=== PATIENT | female | born 2005 | race Caucasian/White ===

== ENCOUNTER 2024-03-14 06:50 | Emergency (ER) | payer SELFPAY ==
[2024-03-14] MEDS ORDERED: Ondansetron PF 4 MG/2 ML Vial ONE (07:21)
[2024-03-14 07:51] LABS: #Basophils 0.07 10x3/uL (0.0-0.2); #Eosinophils 0.11 10x3/uL (0.0-0.5); #Monocytes 0.66 10x3/uL (0.0-1.1); #Neutrophils 6.54 10x3/uL (1.5-8.4); %Basophils 0.7 % (0.0-2.0); %Eosinophils 1.1 % (0.0-6.0); %Lymphocytes 26.3 % (18.0-47.0); %Monocytes 6.6 % (0.0-10.0); %Neutrophils 65.1 % (40.0-75.0); Hematocrit 46.7 % (34.9-44.5); Hemoglobin 15.2 g/dL (12.0-15.5); Mean Corpuscular HGB CONC 32.5 g/dL (32.0-36.0); Mean Corpuscular Hemoglobin 26.7 pg (27.0-33.0); Mean Corpuscular Volume 81.9 fL (81.6-98.3); Mean Platelet Volume 10.1 fL (7.4-10.4); Platelet Count 277 10x3/uL (150-450); RBC Distribution Width 14.7 % (11.5-14.5)
[2024-03-14 07:52] LABS: BHCG - Serum Negative (NEGATIVE); Pregs Control Background? CLEAR/WHITE (CLR/WHITE); Pregs Control Bar Appear? YES (CONTROL BAR)
[2024-03-14 07:55] LABS: PTT 25.7 sec (22.0-33.0); Prothrombin Time 10.8 sec (9.5-12.1)
[2024-03-14 07:57] LABS: Acetaminophen Less than 10 mcg/mL (Less than 10); Alcohol 311.6 mg/dL (Less than 10); Salicylate Less than 8.0 mg/dL (Less than 8.0)
[2024-03-14 08:00] LABS: ALT (SGPT) 20 U/L (8-55); AST (SGOT) 26 U/L (5-30); Albumin 4.5 g/dL (3.5-5.0); Alkaline Phosphatase 89 U/L (40-100); Anion Gap 16 mmol/L (10-20); BUN (Urea Nitrogen) 7 mg/dL (8.4-21.0); Bilirubin, Total 0.4 mg/dL (0.2-1.2); Calc. Creatinine Clearance 0 mL/min (70-130); Carbon Dioxide 21 mmol/L (22-29); Chloride 114 mmol/L (98-107); Estimated GFR 121; Globulin 2.7 g/dL (2.4-3.5); Glucose 118 mg/dL (70-105); Potassium 3.8 mmol/L (3.5-5.1); Protein, Total 7.2 g/dL (6.0-8.3); Sodium 147 mmol/L (136-145)
== END 2024-03-14 08:45 | disposition home or self-care (01) ==
LOC: CSHERS 06:50
DX: S00.93XA Contusion of unspecified part of head, initial encounter (principal); S80.212A Abrasion, left knee, initial encounter; S80.211A Abrasion, right knee, initial encounter; S50.311A Abrasion of right elbow, initial encounter; S70.311A Abrasion, right thigh, initial encounter; F10.129 Alcohol abuse with intoxication, unspecified; W19.XXXA Unspecified fall, initial encounter
CPT/HCPCS: 70450; 80053; 80307; 84703; 85025; 85610; 85730; 96374; J2405